=== PATIENT | female | born 1955 | race African-American/Black ===

== ENCOUNTER 2021-01-27 11:05 | Outpatient (REF) | payer MEDICAID, SELFPAY ==
[2021-01-27 13:22] LABS: Valproate 71.7 mcg/mL (50.0-100.0)
[2021-01-27 13:41] LABS: Alanine Aminotransferase 8 U/L (0-31); Albumin Level 3.8 g/dL (3.5-5.0); Alkaline Phosphatase 78 U/L (39-117); Aspartate Amino Transferase 15 U/L (5-31); Bilirubin Direct 0.2 mg/dL (0.0-0.5); Bilirubin Total 0.5 mg/dL (0.0-1.0); Total Protein 7.1 g/dL (6.5-8.0)
[2021-01-27 17:53] LABS: Ammonia 34 umol/L (13-55)
== END 2021-01-27 11:06 | disposition home or self-care (01) ==
LOC: HO.LAB 11:05
PROVIDERS: Visit Provider General Practice
DX: F29 Unspecified psychosis not due to a substance or known physiological condition (principal)
CPT/HCPCS: 36415; 80076; 80164; 82140